=== PATIENT | female | born 1945 | race Caucasian/White ===

== ENCOUNTER 2017-06-20 08:29 | Day surgery (SDC) | payer OTHER, SELFPAY ==
[~2017-06-20 08:29] MED LIST: ASPI81CH PO; ATOR20 PO; CAND32 PO; CLOB.05TO; HYDCHL12.5 PO; Vitamin D2000 UNIT PO; ZOLP10 PO
== END 2017-06-20 11:56 | disposition home or self-care (01) ==
LOC: US 08:29
PROVIDERS: Radiology Diagnostic Radiology
PROC: 0FB13ZX Excision of Right Lobe Liver, Percutaneous Approach, Diagnostic (ICD-10-PCS; principal; 2017-06-20 10:00)
DX: K75.9 Inflammatory liver disease, unspecified (principal); R74.8 Abnormal levels of other serum enzymes
CPT/HCPCS: 47000; 76942; 88307; 88313

== ENCOUNTER 2018-11-19 07:39 | Day surgery (SDC) | payer OTHER, SELFPAY ==
[~2018-11-19] VITALS: Ht 157.5 cm; Wt 74.9 kg
[~2018-11-19 07:39] MED LIST changes: +LOSARTAN POTASS50 MG PO; +OMEPRAZOLE MAGN20 MG PO
[2018-11-19] MEDS ORDERED: ASPI81CH (08:19)
== END 2018-11-19 09:45 | disposition home or self-care (01) ==
LOC: ORSCSDS 07:39
PROVIDERS: Internal Medicine Gastroenterology
PROC: 0D758ZZ Dilation of Esophagus, Via Natural or Artificial Opening Endoscopic (ICD-10-PCS; 2018-11-19)
PROC: 0DB48ZX Excision of Esophagogastric Junction, Via Natural or Artificial Opening Endoscopic, Diagnostic (ICD-10-PCS; principal; 2018-11-19 09:00)
PROC: 0DB58ZX Excision of Esophagus, Via Natural or Artificial Opening Endoscopic, Diagnostic (ICD-10-PCS; principal; 2018-11-19 09:00)
DX: K21.9 Gastro-esophageal reflux disease without esophagitis (principal); R13.14 Dysphagia, pharyngoesophageal phase; K29.60 Other gastritis without bleeding; I10 Essential (primary) hypertension; E78.5 Hyperlipidemia, unspecified; K29.70 Gastritis, unspecified, without bleeding; Z79.82 Long term (current) use of aspirin; Z79.899 Other long term (current) drug therapy
CPT/HCPCS: 87081; 88305; 88342; J0330; J0461; J2405; J2704; J7120

== ENCOUNTER 2020-12-31 07:27 | Day surgery (SDC) | payer OTHER ==
[~2020-12-31] VITALS: Ht 157.5 cm; Wt 73.2 kg
[~2020-12-31 07:27] MED LIST changes: +ASPI81CH
== END 2020-12-31 09:38 | disposition home or self-care (01) ==
LOC: ORSCSDS 07:27
PROVIDERS: Ophthalmology
PROC: 08RK3JZ Replacement of Left Lens with Synthetic Substitute, Percutaneous Approach (ICD-10-PCS; principal; 2020-12-31 08:45)
DX: H25.12 Age-related nuclear cataract, left eye (principal); I10 Essential (primary) hypertension; K21.9 Gastro-esophageal reflux disease without esophagitis; Z87.891 Personal history of nicotine dependence; Z79.899 Other long term (current) drug therapy
CPT/HCPCS: J2001; J2250; J3010; J3301; J7040; V2632

== ENCOUNTER 2021-03-11 06:42 | Day surgery (SDC) | payer OTHER ==
[~2021-03-11] VITALS: Ht 154.9 cm; Wt 73.7 kg
--- NOTE | 2021-03-11 06:59 | NUR ---
03/11/21 0659 Elbert Morrison TETRACAINE IN RIGHT EYE PER ORDERS AT 0655 AND PLEDGET APPLIED AT 0656
== END 2021-03-11 08:45 | disposition home or self-care (01) ==
LOC: ORSCSDS 06:42
PROVIDERS: Ophthalmology
PROC: 08RJ3JZ Replacement of Right Lens with Synthetic Substitute, Percutaneous Approach (ICD-10-PCS; principal; 2021-03-11 08:00)
DX: H25.11 Age-related nuclear cataract, right eye (principal); I10 Essential (primary) hypertension; K21.9 Gastro-esophageal reflux disease without esophagitis; Z79.899 Other long term (current) drug therapy
CPT/HCPCS: A9270; J2001; J2250; J3010; J3301; J7040; V2632

== ENCOUNTER 2022-12-07 12:21 | Day surgery (SDC) | payer OTHER ==
[~2022-12-07] VITALS: Ht 154.9 cm; Wt 69.0 kg
[2022-12-07] MEDS ORDERED: B COMPLEX FORM0.4 MG (12:44)
[2022-12-07 15:02] VITALS: BP 144/79
== END 2022-12-07 14:58 | disposition home or self-care (01) ==
LOC: ORSCSDS 12:21
PROVIDERS: Internal Medicine Gastroenterology
PROC: 0D757ZZ Dilation of Esophagus, Via Natural or Artificial Opening (ICD-10-PCS; principal; 2022-12-07 13:45)
PROC: 0DB98ZX Excision of Duodenum, Via Natural or Artificial Opening Endoscopic, Diagnostic (ICD-10-PCS; principal; 2022-12-07 13:45)
PROC: 0DB48ZX Excision of Esophagogastric Junction, Via Natural or Artificial Opening Endoscopic, Diagnostic (ICD-10-PCS; principal; 2022-12-07 13:45)
PROC: 0DJD8ZZ Inspection of Lower Intestinal Tract, Via Natural or Artificial Opening Endoscopic (ICD-10-PCS; principal; 2022-12-07 13:45)
DX: R13.14 Dysphagia, pharyngoesophageal phase (principal); K21.9 Gastro-esophageal reflux disease without esophagitis; Z12.11 Encounter for screening for malignant neoplasm of colon; Z86.010 Personal history of colon polyps; K22.2 Esophageal obstruction; K29.80 Duodenitis without bleeding; K57.30 Diverticulosis of large intestine without perforation or abscess without bleeding; I10 Essential (primary) hypertension; Z87.891 Personal history of nicotine dependence; Z79.899 Other long term (current) drug therapy
CPT/HCPCS: 43239; 43450; G0105; 88305; J0461; J2001; J2405; J2704; J7120; Q9968